=== PATIENT | female | born 1945 | race African-American/Black ===

== ENCOUNTER 2018-09-23 12:33 | Observation (INO) ==
[2018-09-23 14:08] LABS: Basophils % 0.2 % (0.0-0.8); Eosinophils % 0.1 % (0.00-10.9); Hematocrit 36.4 VOL% (35.7-47.0); Hemoglobin 10.8 GM/DL (12.0-16.0); Immature Granulocytes % 0.5 %; Immature Granulocytes Absolute 0.08 #; Lymphocytes # 0.5 10*3/uL (1.4-4.0); Lymphocytes % 2.9 % (21.3-54.2); Mean Corpuscular HGB Conc 29.7 GM/DL (32-36); Mean Corpuscular Volume 71.7 FL (87-102); Mean Platelet Volume 11.4 FL (9.6-12.0); Neutrophils % 89.3 % (38.7-73.9); Platelet Count 320 T/CUMM (130-400); Red Blood Count 5.08 MC/CUMM (3.8-5.5); Red Cell Distribution Width 16.8 % (9.3-17.3); White Blood Count 17.3 T/CUMM (4-12)
[2018-09-23 14:33] LABS: Alanine Aminotransferase 21 U/L (13-56); Albumin 3.8 G/DL (3.4-5.0); Alkaline Phosphatase 130 U/L (45-117); Aspartate Amino Transferase 22 U/L (0-37); Bilirubin,Total < 0.39 MG/DL (0.2-1.0); Blood Urea Nitrogen 15 MG/DL (7-18); Calcium 9.6 MG/DL (8.5-10.1); Glucose 269 MG/DL (74-106); Osmolality,Calculated 275.4 MOS/KG (273-304)
[2018-09-23 17:27] LABS: Lymphocytes 2 % (20-55); Segmented Neutrophils 94 % (50-85); Total Cells Counted 100
[2018-09-23 17:28] LABS: Hypochromasia 2+; Microcytosis 1+; Ovalocytes Few; Platelet Estimate Normal; Polychromasia Few
[2018-09-23 17:37] LABS: Calcium 9.2 MG/DL (8.5-10.1); Osmolality,Calculated 283.8 MOS/KG (273-304)
[2018-09-23 17:42] LABS: Barbiturates Screen,Urine Negative (Negative); Benzodiazepines Screen,Urine Negative (Negative); Cannabinoid Screen,Urine Negative (Negative); Opiate Screen,Urine Negative (Negative); Phencyclidine Screen,Urine Negative (Negative)
[2018-09-23 17:44] LABS: Apearance,Urine CLOUDY (Clear); Bilirubin,Urine Negative (Negative); Blood, Urine Large mg/dL (Negative); Glucose,Urine (UA) >=500 mg/dL (Negative); Ketones,Urine 5 mg/dL (Negative); Nitrite,Urine Negative (Negative); Protein,Urine >=500 MG/DL; Urine Color Yellow (Yellow); Urine Specific Gravity 1.025 (1.001-1.035); Urine Urobilinogen < 2.0 EU/DL (0.2-1.0); WBC,Urine 2352 /HPF (0-6)
[2018-09-23] MEDS ORDERED: SODIUM CHLORIDE 0.9% 1,000 ML IV STA (17:55)
[2018-09-23] MEDS ORDERED: LEVOFLOXACIN INJ 750 MG in PREMIX 1 EACH IV STA (17:55)
[2018-09-23] MEDS ORDERED: SODIUM CHLORIDE 0.9% 3,000 ML IV ONE (18:23)
[2018-09-23] MEDS ORDERED: MAGNESIUM SULF RIDER 2 GM in PREMIX 1 EACH IV PRN (18:26)
[2018-09-23] MEDS ORDERED: MAGNESIUM SULF RIDER 4 GM in PREMIX 1 EACH IV PRN (18:26)
[2018-09-23] MEDS ORDERED: POTASSIUM CHLORIDE RIDER 10 MEQ in PREMIX 1 EACH IV PRN (18:28)
[2018-09-23] MEDS ORDERED: GLUCAGON 1 MG VIAL IM PRN (18:28)
[2018-09-23] MEDS ORDERED: DEXTROSE 50% 25 GM/50 ML VIAL IV PRN ×2 (18:28→18:29)
[2018-09-23] MEDS ORDERED: SODIUM CHLORIDE 0.9% 2,000 ML IV STA (19:49)
[2018-09-23] MEDS ORDERED: MAGNESIUM SULF RIDER 50 ML IV ONE (19:55)
[2018-09-23] MEDS: INSULIN LISPRO 100 UNIT/ML SUBCUT SCH (21:58)
[2018-09-23] MEDS: ATORVASTATIN 20 MG TABLET PO SCH (23:39)
[2018-09-23] MEDS: INSULIN GLARGINE 100 UNIT/ML SUBCUT SCH (23:43)
[2018-09-23] MEDS: HEPARIN 5,000 UNIT/1 ML VIAL SUBCUT SCH (23:44)
[2018-09-24] MEDS: HEPARIN 5,000 UNIT/1 ML VIAL SUBCUT SCH ×3 (06:13→21:37)
[2018-09-24] MEDS: LEVOTHYROXINE 100 MCG VIAL IV SCH (06:14)
[2018-09-24] MEDS: INSULIN LISPRO 100 UNIT/ML SUBCUT SCH ×4 (08:55→21:36)
[2018-09-24] MEDS: amLODIPine 5 MG TABLET PO SCH (08:55)
[2018-09-24 09:17] LABS: Basophils % 0.3 % (0.0-0.8); Eosinophils # 0.1 10*3/uL (0.0-0.87); Hematocrit 32.3 VOL% (35.7-47.0); Hemoglobin 9.5 GM/DL (12.0-16.0); Immature Granulocytes % 0.5 %; Immature Granulocytes Absolute 0.05 #; Lymphocytes # 1.1 10*3/uL (1.4-4.0); Lymphocytes % 10.4 % (21.3-54.2); Mean Corpuscular HGB Conc 29.4 GM/DL (32-36); Mean Corpuscular Volume 72.7 FL (87-102); Mean Platelet Volume 11.4 FL (9.6-12.0); Monocytes % 8.7 % (1.7-12.7); Neutrophils % 79.1 % (38.7-73.9); Platelet Count 299 T/CUMM (130-400); Red Blood Count 4.44 MC/CUMM (3.8-5.5); White Blood Count 10.9 T/CUMM (4-12)
[2018-09-24 09:35] LABS: Alanine Aminotransferase 17 U/L (13-56); Alkaline Phosphatase 109 U/L (45-117); Aspartate Amino Transferase 13 U/L (0-37); Bilirubin,Total < 0.39 MG/DL (0.2-1.0); Blood Urea Nitrogen 10 MG/DL (7-18); Calcium 8.7 MG/DL (8.5-10.1); Glucose 194 MG/DL (74-106); Osmolality,Calculated 282.4 MOS/KG (273-304); Total Protein 7.2 G/DL (6.4-8.3)
[2018-09-24] MEDS ORDERED: SODIUM CHLORIDE 0.45% 1,000 ML IV SCH (12:30)
[2018-09-24] MEDS ORDERED: SODIUM PHOSPHATE INJ 30 MMOL in SODIUM CHLORIDE 0.9% 250 ML IV ONE (15:00)
[2018-09-24] MEDS ORDERED: POTASSIUM PHOS/SOD PHOS POWDER 250 MG PACK PO SCH (17:00)
[2018-09-24] MEDS: INSULIN GLARGINE 100 UNIT/ML SUBCUT SCH (21:36)
[2018-09-24] MEDS: ATORVASTATIN 20 MG TABLET PO SCH (21:37)
[2018-09-25] MEDS: CIPROFLOXACIN INJ 400 MG in PREMIX 1 EACH IV SCH ×2 (00:09→11:42)
[2018-09-25 05:02] LABS: Basophils % 0.1 % (0.0-0.8); Eosinophils # 0.2 10*3/uL (0.0-0.87); Eosinophils % 2.2 % (0.00-10.9); Hematocrit 30.8 VOL% (35.7-47.0); Immature Granulocytes % 0.4 %; Immature Granulocytes Absolute 0.03 #; Lymphocytes # 1.2 10*3/uL (1.4-4.0); Lymphocytes % 18.2 % (21.3-54.2); Mean Corpuscular HGB Conc 29.2 GM/DL (32-36); Mean Corpuscular Volume 72.3 FL (87-102); Mean Platelet Volume 10.6 FL (9.6-12.0); Monocytes % 9.5 % (1.7-12.7); Neutrophils % 69.6 % (38.7-73.9); Platelet Count 293 T/CUMM (130-400); Red Blood Count 4.26 MC/CUMM (3.8-5.5); Red Cell Distribution Width 17.1 % (9.3-17.3); White Blood Count 6.7 T/CUMM (4-12)
[2018-09-25 05:29] LABS: Risk Ratio 2.46; VLDL CHOLESTEROL 29.8 MG/DL
[2018-09-25 05:41] LABS: Bilirubin,Total 0.4 MG/DL (0.2-1.0); Calcium 8.6 MG/DL (8.5-10.1); Osmolality,Calculated 286.8 MOS/KG (273-304); Total Protein 6.9 G/DL (6.4-8.3)
[2018-09-25] MEDS: HEPARIN 5,000 UNIT/1 ML VIAL SUBCUT SCH (06:25)
[2018-09-25] MEDS: LEVOTHYROXINE 100 MCG VIAL IV SCH (07:45)
[2018-09-25] MEDS: INSULIN LISPRO 100 UNIT/ML SUBCUT SCH ×2 (08:28→11:45)
[2018-09-25] MEDS: amLODIPine 5 MG TABLET PO SCH (08:28)
[2018-09-25 12:11] VITALS: BP 143/95
== END 2018-09-25 13:10 | disposition home or self-care (01) ==
LOC: N.ED 12:33 → N.EDINP 12:33 → N.2E 21:27
PROVIDERS: ADMIT Internal Medicine; ATTEND Internal Medicine